=== PATIENT | female | born 1950 | race Caucasian/White ===

== ENCOUNTER 2017-03-01 14:04 | Emergency (ER) | payer MEDICARE, MEDICAID ==
[~2017-03-01 14:04] MED LIST: ADVAIR 2501 DISK W/D; ADVAIR 2501 DISK W/D IH; ALBUTEROL0.83 MG/ML; ALBUTEROL17 GM INH; AMBIEN10 MG PO; ATARAX25 MG; ATARAX25 MG PO; ATROVENT21 MCG; BENADRYL50 MG; BENADRYL50 MG PO; CALCIUM 600 +1 EAC2 PO; CALCIUM WITH VI1 TAB; CARISOPRODOL350 MG; CLONAZEPAM2 MG; COMPAZINE; DIAZEPAM2 MG; DUONEB 2.5-0.5 M3 ML; DUONEB 2.5-0.5 M3 ML IH; FUROSEMIDE40 MG; FUROSEMIDE80 MG; GEMFIBROZIL600 MG; HALCION0.25 M1 PO; HALCION0.25 M2 PO; K CL-2020 MEQ/15; K-DUR20 MEQ; KEFLEX500 MG PO; KLONOPIN2 MG PO; LASIX40 MG PO; LASIX80 MG PO; LOMOTIL TABLET1 TAB; LOMOTIL1 TAB PO; LONOX; LUNESTA2 MG; METHOCARBAMOL750 MG; METROGEL 1% KIT1 EA; MORPHINE SULFAT3 PO; MORPHINE SULFAT60 MG PO; MORPHINE SULFAT90 MG PO; NEOSPORIN OINTM15 GM; POTASSIUM CHLO20 MEQ PO; PRILOSEC20 MG; PROCHLORPERAZIN10 MG; SKELAXIN800 MG; SPIRONOLACT/HCT1 TAB; SPIRONOLACTONE1 TAB; SPIRONOLACTONE25 M2 PO; TYLENOL EXTRA500 MG; VALIUM2 MG PO; VALIUM5 M1 PO; VISTARIL25 MG PO; ZYRTEC10 MG
[2017-03-01 16:09] LABS: BASO % 0.2 % (0-2); EOS % 0.2 % (0-7); HCT-HEMATOCRIT 41.1 % (34.0-49.0); HGB-HEMOGLOBIN 14.2 gm/dl (12.0-15.5); IMMATURE GRANULOCYTES ABSOLUTE 0.03 tho/cmm (0-0.03); IMMATURE GRANULOCYTES PERCENT 0.2 % (0-0.3); LYMPH % 15.5 % (20-45); LYMPH ABSOLUTE COUNT 1.9 tho/cmm (0.8-4.5); MCH (MEAN CORPUSCULAR HGB) 30.5 pg (28.0-32.0); MCHC MEAN CORPUSCULAR HGB CONC 34.5 % (32.0-36.0); MCV (MEAN CELL VOLUME) 88.2 fl (82.0-96.0); MEAN PLATELET VOLUME 9.8 cmc (9.4-12.4); MONO % 4.4 % (0-12); MONOCYTE ABSOLUTE COUNT 0.6 tho/cmm (0.0-1.2); NEUTROPHIL ABSOLUTE COUNT 9.9 tho/cmm (1.6-8.0); NEUTROPHIL-AUTOMATED 9.9 tho/cmm (1.6-8.0); NEUTROPHILS % 79.5 % (40-80); PLATELET COUNT 294 tho/cmm (150-450); RED BLOOD COUNT 4.66 mil/cmm (4.00-5.20); RED CELL DISTRIBUTION WIDTH 14.1 % (12.4-16.4); WHITE BLOOD COUNT 12.5 tho/cmm (4.0-10.0)
[2017-03-01 16:20] LABS: ANION GAP 13 mmol/L (0-20); BLOOD UREA NITROGEN 9 mg/dl (6-24); CALCIUM 9.2 mg/dl (8.5-10.5); CARBON DIOXIDE-VENOUS 25 mmol/L (22-32); CHLORIDE 104 mmol/l (96-110); CREATININE 0.73 mg/dl (0.50-1.10); GLUCOSE 92 mg/dL (70-110); SODIUM 138 mmol/L (135-145); eGFR VALUE FOR BLACK >90 mL/Min
[2017-03-01 16:45] LABS: ALCOHOL (ETOH) <10 mg/dl (<10)
[2017-06-26] MEDS ORDERED: PREMARIN1.25 M1 PO (13:17)
[2017-06-26] MEDS ORDERED: HYDROXYZINE HCL10 M1 PO (15:07)
[2017-06-26] MEDS ORDERED: TRAMADOL HCL50 M2 PO (15:07)
== END 2017-03-01 19:56 | disposition left against medical advice (07) ==
LOC: EDMED 14:04
PROVIDERS: Physician Assistant
DX: S31.41XA Laceration without foreign body of vagina and vulva, initial encounter (principal); Z90.710 Acquired absence of both cervix and uterus; Z90.49 Acquired absence of other specified parts of digestive tract; F17.210 Nicotine dependence, cigarettes, uncomplicated; X58.XXXA Exposure to other specified factors, initial encounter
CPT/HCPCS: G0480; J2270; J7030